=== PATIENT | male | born 1935 | race Caucasian/White ===

== ENCOUNTER 2020-08-16 08:28 | Emergency (ER) | payer OTHER, MEDICARE ==
[~2020-08-16] VITALS: Ht 180.3 cm; Wt 70.5 kg
[2020-08-16] MEDS ORDERED: TETanus/Pertussis (Acell)/Diphther VAC/PF (Tdap-Adult) 0.5ml syringe IMVAC ONE (09:05)
[2020-08-16 09:27] LABS: BASOPHILS # (AUTO) 0.1 X10'3 (0-0.2); BASOPHILS % (AUTO) 0.9 % (0-1); EOSINOPHILS # (AUTO) 0.3 X10'3 (0-0.9); EOSINOPHILS % (AUTO) 3.7 % (0-6); HEMATOCRIT 37.3 % (42.0-52.0); HEMOGLOBIN 12.3 g/dl (14.0-17.9); LYMPHOCYTES # (AUTO) 0.9 X10'3 (1.1-4.8); LYMPHOCYTES % (AUTO) 11.8 % (21-51); MEAN CORPUSCULAR HEMOGLOBIN 30.8 PG (27.0-31.0); MEAN CORPUSCULAR HGB CONC 33.1 g/dL (33.0-36.5); MEAN CORPUSCULAR VOLUME 93.1 FL (78-98); MEAN PLATELET VOLUME 8.1 FL (7.4-10.4); MONOCYTES # (AUTO) 0.6 X10'3 (0-0.9); MONOCYTES % (AUTO) 8.2 % (2-12); NEUTROPHILS # (AUTO) 5.5 X10'3 (1.8-7.7); NEUTROPHILS % (AUTO) 75.4 % (42-75); PLATELET COUNT 260 X10'3 (140-440); RED CELL DISTRIBUTION WIDTH 13.5 % (11.5-14.5); WHITE BLOOD COUNT 7.4 X10'3 (4.5-11.0)
[2020-08-16 09:45] LABS: ALANINE AMINOTRANSFERASE 14 U/L (12-78); ALBUMIN 3.1 G/DL (3.4-5.0); ALBUMIN/GLOBULIN RATIO 0.8 (1.1-1.5); ALKALINE PHOSPHATASE 110 IU/L (46-116); ANION GAP 13 (8-16); ASPARTATE AMINO TRANSFERASE 13 U/L (10-37); BILIRUBIN,TOTAL 0.4 MG/DL (0.1-1.0); BLOOD UREA NITROGEN 19 MG/DL (7-18); BUN/CREATININE RATIO 15.1 (5.4-32.0); CHLORIDE 107 MMOL/L (99-107); CREATININE 1.26 MG/DL (0.60-1.10); ETHANOL < 0.010 GM/DL (0.0-0.010); GLUCOSE 98 MG/DL (70-104); POTASSIUM 3.8 MMOL/L (3.5-5.1); SODIUM 143 MMOL/L (135-145); TOTAL CARBON DIOXIDE 22.9 MMOL/L (24-32); TOTAL PROTEIN 6.9 G/DL (6.4-8.2); eGFR 54 ML/MIN
[2020-08-16 10:35] LABS: CLARITY,URINE SLIGHTLY CLOUDY (Clear); COLOR,URINE YELLOW (Yellow); GLUCOSE, URINE NEGATIVE (Neg); KETONES,URINE NEGATIVE (Neg); LEUKOCYTE ESTERASE ,URINE NEGATIVE (Neg); NITRITES, URINE NEGATIVE (Neg); OCCULT BLOOD,URINE NEGATIVE (Neg); PH,URINE 5.5 (4.8-8.0); PROTEIN,URINE NEGATIVE (Neg); UROBILINOGEN,URINE 0.2 E.U/dL (0.2-1.0)
[2020-08-16 10:36] LABS: UA COLLECTION TYPE STRAIGHT CATH
[2020-08-16 10:42] LABS: MUCUS STRANDS MODERATE /LPF (Neg)
[2020-08-16 10:44] LABS: BACTERIA,URINE 1+ /HPF (Neg); RBC,URINE 0-2 /HPF (0-2); SQUAMOUS EPITHELIAL CELL,UR FEW /LPF (FEW); WBC,URINE 0-4 /HPF (0-4)
[2020-08-16 10:50] LABS: URINE AMPHETAMINE SCREEN NEGATIVE (Neg); URINE BARBITUATE SCREEN NEGATIVE (Neg); URINE BENZODIAZEPINES SCREEN NEGATIVE (Neg); URINE CANNABINOID SCREEN NEGATIVE (Neg); URINE COCAINE SCREEN NEGATIVE (Neg); URINE METHADONE SCREEN NEGATIVE (Neg); URINE OPIATE SCREEN NEGATIVE (Neg); URINE PHENCYCLIDINE SCREEN NEGATIVE (Neg)
[2020-08-16 13:09] VITALS: BP 148/89
== END 2020-08-16 13:11 | disposition home or self-care (01) ==
LOC: ER 08:28
DX: N28.9 Disorder of kidney and ureter, unspecified (principal); R56.9 Unspecified convulsions; I63.9 Cerebral infarction, unspecified; R47.01 Aphasia; Z86.73 Personal history of transient ischemic attack (TIA), and cerebral infarction without residual deficits
CPT/HCPCS: 36415; 70450; 80053; 80305; 80320; 81001; 82948; 85025; 90471; 90715; 93005; 99285

== ENCOUNTER 2020-09-06 08:38 | Emergency (ER) | payer OTHER, MEDICARE ==
[~2020-09-06] VITALS: Ht 182.9 cm; Wt 69.0 kg
[2020-09-06] MEDS ORDERED: LIDOcaine 1% W/epiNEPHrine 1:200,000 10ml vial IJ ONE (08:55)
[2020-09-06] MEDS ORDERED: TETanus/Pertussis (Acell)/Diphther VAC/PF (Tdap-Adult) 0.5ml syringe IMVAC ONE (08:55)
[2020-09-06 09:13] LABS: BASOPHILS # (AUTO) 0.1 X10'3 (0-0.2); BASOPHILS % (AUTO) 0.9 % (0-1); EOSINOPHILS # (AUTO) 0.3 X10'3 (0-0.9); HEMATOCRIT 35.5 % (42.0-52.0); HEMOGLOBIN 11.6 g/dl (14.0-17.9); LYMPHOCYTES # (AUTO) 1.2 X10'3 (1.1-4.8); MEAN CORPUSCULAR HEMOGLOBIN 30.1 PG (27.0-31.0); MEAN CORPUSCULAR HGB CONC 32.7 g/dL (33.0-36.5); MEAN CORPUSCULAR VOLUME 92.1 FL (78-98); MEAN PLATELET VOLUME 8.4 FL (7.4-10.4); MONOCYTES # (AUTO) 0.6 X10'3 (0-0.9); MONOCYTES % (AUTO) 8.2 % (2-12); NEUTROPHILS # (AUTO) 4.6 X10'3 (1.8-7.7); NEUTROPHILS % (AUTO) 67.9 % (42-75); PLATELET COUNT 235 X10'3 (140-440); RED BLOOD COUNT 3.85 X10'6 (4.70-6.10); RED CELL DISTRIBUTION WIDTH 13.9 % (11.5-14.5); WHITE BLOOD COUNT 6.7 X10'3 (4.5-11.0)
[2020-09-06 09:20] LABS: ALANINE AMINOTRANSFERASE 10 U/L (12-78); ALBUMIN 2.6 G/DL (3.4-5.0); ALBUMIN/GLOBULIN RATIO 0.8 (1.1-1.5); ALKALINE PHOSPHATASE 103 IU/L (46-116); ANION GAP 14 (8-16); ASPARTATE AMINO TRANSFERASE 10 U/L (10-37); BILIRUBIN,TOTAL 0.3 MG/DL (0.1-1.0); BLOOD UREA NITROGEN 16 MG/DL (7-18); CALCIUM 7.3 MG/DL (8.5-10.1); CHLORIDE 113 MMOL/L (99-107); GLUCOSE 77 MG/DL (70-104); POTASSIUM 3.5 MMOL/L (3.5-5.1); SODIUM 144 MMOL/L (135-145); TOTAL CARBON DIOXIDE 17.4 MMOL/L (24-32); TOTAL PROTEIN 5.8 G/DL (6.4-8.2); eGFR 71 ML/MIN
--- NOTE | 2020-09-06 10:12 | NUR ---
pt getting tele neuro at bedside ,went to talk to the neurologist and discussed the sbar.as per neurologist he will talk to the doctor .
[2020-09-06] MEDS ORDERED: levetiracetam inj 2,000 MG in normal saline 100ml IV soln 80 ML IV SCH (10:50)
[2020-09-06] MEDS ORDERED: NORMAL SALINE IV SCH ×2 (10:54→11:03)
[2020-09-06] MEDS ORDERED: LEVETIRACETAM IV SCH ×2 (10:54→11:03)
--- NOTE | 2020-09-06 11:10 | NUR ---
DR RANDHAWA IN ROOM AND REMOVED CERVICAL COLLAR. PER MD PLAN TO OBTAIN UA AND GIVE IV KEPPRA AND DC HOME
[2020-09-06 11:16] LABS: CLARITY,URINE CLEAR (Clear); COLOR,URINE YELLOW (Yellow); GLUCOSE, URINE NEGATIVE (Neg); KETONES,URINE NEGATIVE (Neg); LEUKOCYTE ESTERASE ,URINE NEGATIVE (Neg); NITRITES, URINE NEGATIVE (Neg); OCCULT BLOOD,URINE NEGATIVE (Neg); PH,URINE 7.5 (4.8-8.0); PROTEIN,URINE NEGATIVE (Neg)
[2020-09-06 11:19] LABS: UA COLLECTION TYPE STRAIGHT CATH
--- NOTE | 2020-09-06 11:26 | NUR ---
PATIENT IN A WEI OF URINE AND MEDIUM BROWN BM, CLEANED AND LINENE AND GOWN CHANGE
[2020-09-06] MEDS ORDERED: LEVE750T6 PO (11:41)
[2020-09-06 12:30] VITALS: BP 125/71
--- NOTE | 2020-09-06 12:41 | NUR ---
SPOKE TO VIGNESH KEE SON AT [phone] PER SON CALL NITESH AT [phone] TO [facility] FOR TRASPORTATION ,CALLLED NITESH PER HER SHE WILL CALL [facility] TO [facility] FOR TRASPORTATION.
[2020-09-06] MEDS ORDERED: LEVE100S PO (13:33)
== END 2020-09-06 13:38 | disposition home or self-care (01) ==
LOC: ER 08:39
DX: S01.81XA Laceration without foreign body of other part of head, initial encounter (principal); R56.9 Unspecified convulsions; Z20.3 Contact with and (suspected) exposure to rabies; Z86.73 Personal history of transient ischemic attack (TIA), and cerebral infarction without residual deficits; Z88.5 Allergy status to narcotic agent; Z79.899 Other long term (current) drug therapy
CPT/HCPCS: 12001; 36415; 70450; 72125; 80053; 81003; 85025; 90471; 90715; 96365; 99285; J1953; J7050; 12011

== ENCOUNTER 2021-04-20 08:11 | Emergency (ER) | payer OTHER, MEDICARE ==
[~2021-04-20] VITALS: Ht 180.3 cm; Wt 75.0 kg
[~2021-04-20 08:11] MED LIST: LEVE100S PO
[2021-04-20] MEDS ORDERED: TETanus/Pertussis (Acell)/Diphther VAC/PF (Tdap-Adult) 0.5ml syringe IMVAC ONE (10:05)
[2021-04-20 11:48] VITALS: BP 160/95
== END 2021-04-20 13:51 | disposition home or self-care (01) ==
LOC: ER 08:12
DX: S01.81XA Laceration without foreign body of other part of head, initial encounter (principal); S51.012A Laceration without foreign body of left elbow, initial encounter; S09.8XXA Other specified injuries of head, initial encounter; Z98.890 Other specified postprocedural states; Z86.73 Personal history of transient ischemic attack (TIA), and cerebral infarction without residual deficits; Z88.6 Allergy status to analgesic agent; Z79.899 Other long term (current) drug therapy; W06.XXXA Fall from bed, initial encounter; Y93.89 Activity, other specified; Y92.89 Other specified places as the place of occurrence of the external cause; Y99.8 Other external cause status
CPT/HCPCS: 12002; 70450; 72125; 99285

== ENCOUNTER 2021-06-03 17:41 | Emergency (ER) | payer OTHER, MEDICARE ==
[~2021-06-03] VITALS: Ht 180.3 cm; Wt 72.0 kg
[2021-06-03 19:09] LABS: BASOPHILS % (AUTO) 0.4 % (0-1); EOSINOPHILS # (AUTO) 0.1 X10'3 (0-0.9); EOSINOPHILS % (AUTO) 1.3 % (0-6); HEMOGLOBIN 11.4 g/dl (14.0-17.9); LYMPHOCYTES # (AUTO) 0.9 X10'3 (1.1-4.8); LYMPHOCYTES % (AUTO) 10.5 % (21-51); MEAN CORPUSCULAR HEMOGLOBIN 32.9 PG (27.0-31.0); MEAN CORPUSCULAR HGB CONC 34.6 g/dL (33.0-36.5); MEAN CORPUSCULAR VOLUME 95.1 FL (78-98); MEAN PLATELET VOLUME 8.3 FL (7.4-10.4); MONOCYTES # (AUTO) 0.3 X10'3 (0-0.9); MONOCYTES % (AUTO) 4.2 % (2-12); NEUTROPHILS # (AUTO) 6.9 X10'3 (1.8-7.7); NEUTROPHILS % (AUTO) 83.6 % (42-75); PLATELET COUNT 161 X10'3 (140-440); RED BLOOD COUNT 3.47 X10'6 (4.70-6.10); RED CELL DISTRIBUTION WIDTH 15.8 % (11.5-14.5); WHITE BLOOD COUNT 8.3 X10'3 (4.5-11.0)
[2021-06-03 19:22] LABS: ALANINE AMINOTRANSFERASE 59 U/L (12-78); ALBUMIN 2.7 G/DL (3.4-5.0); ALBUMIN/GLOBULIN RATIO 0.8 (1.1-1.5); ALKALINE PHOSPHATASE 100 IU/L (46-116); ANION GAP 9 (8-16); ASPARTATE AMINO TRANSFERASE 33 U/L (10-37); BILIRUBIN,TOTAL 0.5 MG/DL (0.1-1.0); BLOOD UREA NITROGEN 32 MG/DL (7-18); BUN/CREATININE RATIO 30.2 (5.4-32.0); CALCIUM 8.2 MG/DL (8.5-10.1); CHLORIDE 121 MMOL/L (99-107); CREATININE 1.06 MG/DL (0.60-1.10); GLUCOSE 91 MG/DL (70-104); LIPASE 169 U/L (73-393); POTASSIUM 4.4 MMOL/L (3.5-5.1); SODIUM 153 MMOL/L (135-145); TOTAL CARBON DIOXIDE 22.6 MMOL/L (24-32); TOTAL PROTEIN 5.9 G/DL (6.4-8.2); eGFR 66 ML/MIN
[2021-06-03 19:44] LABS: TROPONIN I < 0.04 NG/ML (0.0-0.05)
[2021-06-03] MEDS ORDERED: sodium chloride 0.45% 1,000 ML IV ONE (20:20)
--- NOTE | 2021-06-03 20:51 | NUR ---
PT IS RESTING QUIETLY ON FAMILY BRYANT AT BEDSIDE, 45% NORMAL SALINE INFUSING
[2021-06-03 22:54] LABS: CLARITY,URINE SLIGHTLY CLOUDY (Clear); COLOR,URINE YELLOW (Yellow); GLUCOSE, URINE NEGATIVE (Neg); KETONES,URINE TRACE mg/dl (Neg); LEUKOCYTE ESTERASE ,URINE NEGATIVE (Neg); NITRITES, URINE NEGATIVE (Neg); OCCULT BLOOD,URINE NEGATIVE (Neg); PROTEIN,URINE NEGATIVE (Neg); UA COLLECTION TYPE CLN CATCH MIDSTREAM; UROBILINOGEN,URINE 0.2 E.U/dL (0.2-1.0)
[2021-06-03 22:59] LABS: SQUAMOUS EPITHELIAL CELL,UR FEW /LPF (FEW)
[2021-06-03 23:00] LABS: BACTERIA,URINE FEW /HPF (Neg); RBC,URINE 0-2 /HPF (0-2); WBC,URINE 0-4 /HPF (0-4)
[2021-06-04 02:56] VITALS: BP 139/76
[2021-06-05] MEDS ORDERED: DEXT15DR7 OP (03:36)
[2021-06-05] MEDS ORDERED: LORA-268 (03:36)
[2021-06-05] MEDS ORDERED: FLO0.4C PO (03:36)
[2021-06-05] MEDS ORDERED: LOPE1LIQ54 (03:36)
[2021-06-05] MEDS ORDERED: TRAM50TA2 PO (03:36)
[2021-06-05] MEDS ORDERED: SERT25TA PO (03:36)
[2021-06-05] MEDS ORDERED: POTA-82 PO (03:36)
[2021-06-05] MEDS ORDERED: MAGN400O6 PO (03:36)
[2021-06-05] MEDS ORDERED: BISA10SU60 RC (03:36)
== END 2021-06-04 03:42 | disposition home or self-care (01) ==
LOC: ER 17:41
DX: S00.81XA Abrasion of other part of head, initial encounter (principal); E86.0 Dehydration; R00.1 Bradycardia, unspecified; R62.7 Adult failure to thrive; R32 Unspecified urinary incontinence; F03.91 Unspecified dementia, unspecified severity, with behavioral disturbance; Z88.5 Allergy status to narcotic agent; Z86.16 Personal history of COVID-19; Z79.899 Other long term (current) drug therapy; W19.XXXA Unspecified fall, initial encounter; Y93.89 Activity, other specified; Y92.89 Other specified places as the place of occurrence of the external cause; Y99.8 Other external cause status
CPT/HCPCS: 36415; 70450; 71045; 72125; 80053; 81001; 83605; 83690; 84145; 84484; 85025; 87040; 96360; 96361; 99285

== ENCOUNTER 2021-06-04 22:08 | Inpatient (IN) | payer OTHER, MEDICARE ==
[~2021-06-04] VITALS: Ht 182.9 cm; Wt 75.0 kg
--- NOTE | 2021-06-04 22:25 | NUR ---
PT ROOMED IN BED 1. ASSUMED CARE OF PT.
--- NOTE | 2021-06-04 22:48 | NUR ---
DR HENRIQUEZ IN ROOM.
[2021-06-04] MEDS ORDERED: atropine 1 MG/1 ML vial IV ONE (22:55)
[2021-06-04] MEDS ORDERED: atropine 0.1mg/ml 10ml syringe IV ONE (23:00)
[2021-06-04 23:12] LABS: BASOPHILS % (AUTO) 0.6 % (0-1); EOSINOPHILS # (AUTO) 0.1 X10'3 (0-0.9); EOSINOPHILS % (AUTO) 3.4 % (0-6); HEMATOCRIT 31.4 % (42.0-52.0); HEMOGLOBIN 10.9 g/dl (14.0-17.9); LYMPHOCYTES # (AUTO) 0.8 X10'3 (1.1-4.8); LYMPHOCYTES % (AUTO) 20.2 % (21-51); MEAN CORPUSCULAR HEMOGLOBIN 33.1 PG (27.0-31.0); MEAN CORPUSCULAR HGB CONC 34.8 g/dL (33.0-36.5); MEAN CORPUSCULAR VOLUME 95.4 FL (78-98); MEAN PLATELET VOLUME 8.4 FL (7.4-10.4); MONOCYTES # (AUTO) 0.3 X10'3 (0-0.9); MONOCYTES % (AUTO) 7.9 % (2-12); NEUTROPHILS # (AUTO) 2.7 X10'3 (1.8-7.7); NEUTROPHILS % (AUTO) 67.9 % (42-75); PLATELET COUNT 144 X10'3 (140-440); RED BLOOD COUNT 3.29 X10'6 (4.70-6.10); WHITE BLOOD COUNT 3.9 X10'3 (4.5-11.0)
--- NOTE | 2021-06-04 23:48 | NUR ---
PT AT CT
[2021-06-05] LABS: ALANINE AMINOTRANSFERASE 53 U/L (12-78); ALBUMIN 2.6 G/DL (3.4-5.0); ALBUMIN/GLOBULIN RATIO 0.8 (1.1-1.5); ALKALINE PHOSPHATASE 96 IU/L (46-116); ANION GAP 9 (8-16); ASPARTATE AMINO TRANSFERASE 39 U/L (10-37); BILIRUBIN,DIRECT 0.1 MG/DL (0-0.3); BILIRUBIN,TOTAL 0.3 MG/DL (0.1-1.0); BLOOD UREA NITROGEN 32 MG/DL (7-18); BUN/CREATININE RATIO 28.8 (5.4-32.0); CALCIUM 8.2 MG/DL (8.5-10.1); CHLORIDE 119 MMOL/L (99-107); CREATININE 1.11 MG/DL (0.60-1.10); GLUCOSE 98 MG/DL (70-104); LIPASE 358 U/L (73-393); POTASSIUM 4.3 MMOL/L (3.5-5.1); SODIUM 150 MMOL/L (135-145); TOTAL CARBON DIOXIDE 22.5 MMOL/L (24-32); TOTAL PROTEIN 5.9 G/DL (6.4-8.2); eGFR 63 ML/MIN
[2021-06-05] MEDS ORDERED: normal saline 1000ml 1,000 ML IV ONE (01:55)
[2021-06-05] MEDS ORDERED: magnesium hydroxide 30ml (MOM) UD suspension PO PRN (02:00)
[2021-06-05] MEDS ORDERED: ondansetron/PF 4mg/2ml inj IV PRN (02:00)
[2021-06-05] MEDS ORDERED: acetaminophen 325mg tablet PO PRN (02:00)
[2021-06-05] MEDS: sodium chloride 0.45% 1,000 ML IV SCH ×2 (02:00→12:23)
[2021-06-05] MEDS ORDERED: mag hydrox/Alum hydrox/simeth 30ml oral suspension PO PRN (02:00)
[2021-06-05] MEDS ORDERED: LOPE1LIQ54 (03:36)
[2021-06-05] MEDS ORDERED: BISA10SU60 RC (03:36)
[2021-06-05] MEDS ORDERED: MAGN400O6 PO (03:36)
[2021-06-05] MEDS ORDERED: LORA-268 (03:36)
[2021-06-05] MEDS ORDERED: DEXT15DR7 OP (03:36)
[2021-06-05] MEDS ORDERED: SERT25TA PO (03:36)
[2021-06-05] MEDS ORDERED: TRAM50TA2 PO (03:36)
[2021-06-05] MEDS ORDERED: POTA-82 PO (03:36)
[2021-06-05] MEDS ORDERED: FLO0.4C PO (03:36)
[2021-06-05] MEDS ORDERED: sertraline 50mg tablet PO SCH (08:00)
[2021-06-05] MEDS: docusate sod 100mg capsule PO SCH ×2 (08:00→20:42)
[2021-06-05 09:05] LABS: ALANINE AMINOTRANSFERASE 47 U/L (12-78); ALBUMIN 2.6 G/DL (3.4-5.0); ALBUMIN/GLOBULIN RATIO 0.8 (1.1-1.5); ALKALINE PHOSPHATASE 95 IU/L (46-116); ANION GAP 6 (8-16); ASPARTATE AMINO TRANSFERASE 28 U/L (10-37); BILIRUBIN,TOTAL 0.4 MG/DL (0.1-1.0); BLOOD UREA NITROGEN 29 MG/DL (7-18); BUN/CREATININE RATIO 26.9 (5.4-32.0); CALCIUM 8.8 MG/DL (8.5-10.1); CHLORIDE 121 MMOL/L (99-107); CREATININE 1.08 MG/DL (0.60-1.10); GLUCOSE 52 MG/DL (70-104); POTASSIUM 5.4 MMOL/L (3.5-5.1); SODIUM 151 MMOL/L (135-145); TOTAL CARBON DIOXIDE 23.6 MMOL/L (24-32); TOTAL PROTEIN 5.7 G/DL (6.4-8.2); eGFR 65 ML/MIN
[2021-06-05] MEDS: magnesium hydroxide 30ml (MOM) UD suspension PO SCH ×2 (10:00→20:41)
[2021-06-05] MEDS: levetiracetam 250mg tablet PO SCH ×2 (10:24→20:40)
[2021-06-05] MEDS: bisacodyl 10mg suppository rectal RC SCH (10:24)
[2021-06-05] MEDS: tamsulosin 0.4mg capsule PO SCH (10:24)
--- NOTE | 2021-06-05 15:11 | NUR ---
Patient is resident of [place], per MD, patient can return on hospice care, [facility] have no availability, [facility] can open on Thursday if [facility] is able to accept back, notified
--- NOTE | 2021-06-05 16:14 | NUR ---
updated shai Epps on plan of care
--- NOTE | 2021-06-05 18:50 | NUR ---
REPORT GIVEN TO MARTINA MEJIA, PT TO GO TO ROOM [id number]
[2021-06-05 20:00] VITALS: BP 103/47
--- NOTE | 2021-06-05 20:00 | NUR ---
patient received to floor in no apparent distress. Patient does not appear in pain. Patient bradycardic and hypothermic 92.1F. redness to buttocks noted. BP stable. Physical assessment done and documented. Tele monitor attached. Patient covered with Marco A hugger blanket to increase temp. patient appears comfortable. All safety in place. will continue monitor.
[2021-06-05 20:15] VITALS: BP 118/59
[2021-06-05 20:30] VITALS: BP 122/60
[2021-06-05] MEDS: dextrose 5%-water 1,000 ML IV SCH (20:41)
[2021-06-05 21:00] VITALS: BP 120/58
[2021-06-05 21:30] VITALS: BP 102/51
[2021-06-05 22:00] VITALS: BP 91/42
--- NOTE | 2021-06-06 00:20 | NUR ---
patient has a very big hard BM
[2021-06-06] MEDS: dextrose 5%-water 1,000 ML IV SCH ×3 (01:44→20:11)
[2021-06-06 02:00] VITALS: BP 110/56
[2021-06-06 06:12] LABS: BASOPHILS % (AUTO) 0.6 % (0-1); EOSINOPHILS # (AUTO) 0.1 X10'3 (0-0.9); EOSINOPHILS % (AUTO) 1.4 % (0-6); HEMATOCRIT 29.8 % (42.0-52.0); HEMOGLOBIN 10.5 g/dl (14.0-17.9); LYMPHOCYTES # (AUTO) 0.8 X10'3 (1.1-4.8); LYMPHOCYTES % (AUTO) 17.9 % (21-51); MEAN CORPUSCULAR HEMOGLOBIN 32.9 PG (27.0-31.0); MEAN CORPUSCULAR HGB CONC 35.1 g/dL (33.0-36.5); MEAN CORPUSCULAR VOLUME 93.7 FL (78-98); MEAN PLATELET VOLUME 9.2 FL (7.4-10.4); MONOCYTES # (AUTO) 0.3 X10'3 (0-0.9); MONOCYTES % (AUTO) 6.2 % (2-12); NEUTROPHILS # (AUTO) 3.2 X10'3 (1.8-7.7); NEUTROPHILS % (AUTO) 73.9 % (42-75); PLATELET COUNT 157 X10'3 (140-440); RED BLOOD COUNT 3.18 X10'6 (4.70-6.10); RED CELL DISTRIBUTION WIDTH 15.6 % (11.5-14.5); WHITE BLOOD COUNT 4.3 X10'3 (4.5-11.0)
[2021-06-06 06:21] LABS: ALANINE AMINOTRANSFERASE 154 U/L (12-78); ALBUMIN 2.3 G/DL (3.4-5.0); ALBUMIN/GLOBULIN RATIO 0.8 (1.1-1.5); ALKALINE PHOSPHATASE 101 IU/L (46-116); ANION GAP 8 (8-16); ASPARTATE AMINO TRANSFERASE 124 U/L (10-37); BILIRUBIN,TOTAL 0.4 MG/DL (0.1-1.0); BLOOD UREA NITROGEN 25 MG/DL (7-18); BUN/CREATININE RATIO 21.9 (5.4-32.0); CALCIUM 8.1 MG/DL (8.5-10.1); CHLORIDE 116 MMOL/L (99-107); CREATININE 1.14 MG/DL (0.60-1.10); GLUCOSE 59 MG/DL (70-104); POTASSIUM 3.9 MMOL/L (3.5-5.1); SODIUM 145 MMOL/L (135-145); TOTAL PROTEIN 5.2 G/DL (6.4-8.2); eGFR 61 ML/MIN
--- NOTE | 2021-06-06 06:23 | NUR ---
Patient in room PCU 3023. I have received report from MARTINA Perez and had the opportunity to ask questions and assume patient care.
[2021-06-06 07:00] VITALS: BP 105/50
[2021-06-06] MEDS: docusate sod 100mg capsule PO SCH ×3 (08:00→20:00)
[2021-06-06] MEDS: sertraline 50mg tablet PO SCH ×2 (08:00→08:55)
[2021-06-06] MEDS: tamsulosin 0.4mg capsule PO SCH ×2 (08:00→08:55)
[2021-06-06] MEDS: levetiracetam 250mg tablet PO SCH ×3 (08:00→20:00)
[2021-06-06] MEDS: magnesium hydroxide 30ml (MOM) UD suspension PO SCH ×3 (08:00→20:00)
[2021-06-06] MEDS: bisacodyl 10mg suppository rectal RC SCH (08:55)
--- NOTE | 2021-06-06 09:26 | NUR ---
Initial: Pt admit for dehydration and FTT. Per EMR pt confused and with h/o dementia. Currently on a regular diet pending documentation of PO intake, though pt with decreased PO intake MEDIA DIRECTOR per MD notes. Noted pt with a low Torsten of 10, no edema or wounds per physical assessment. No nutrition intervention to be implemented as pt DNR with comfort care. [facility] 06/05. Will continue to follow per LOS. Recommendations: 1) Bowel care per comfort care measures Addendum: 06/06/21 at [address] Amended: Links added.
[2021-06-06 11:00] VITALS: BP 105/54
[2021-06-06 15:00] VITALS: BP 97/43
[2021-06-06] MEDS ORDERED: SERT-433 PO (15:53)
--- NOTE | 2021-06-06 18:25 | NUR ---
Problems reprioritized. Patient report given, questions answered & plan of care reviewed with MARTINA Sandoval. Pt sleeping comfortably, no signs of distress noted at change of shift.
[2021-06-06 19:00] VITALS: BP 92/44
--- NOTE | 2021-06-07 06:02 | NUR ---
Problems reprioritized. Patient report given, questions answered & plan of care reviewed with Nan MACK. Addendum: 06/07/21 at 0602 by Lori Frey RN Amended: Links added.
--- NOTE | 2021-06-07 06:12 | NUR ---
Patient in room PCU 3023. I have received report from MARTINA Sandoval and had the opportunity to ask questions and assume patient care.
[2021-06-07 07:00] VITALS: BP 122/57
[2021-06-07 07:35] LABS: BASOPHILS % (AUTO) 0.4 % (0-1); EOSINOPHILS % (AUTO) 0.8 % (0-6); HEMATOCRIT 32.1 % (42.0-52.0); HEMOGLOBIN 11.1 g/dl (14.0-17.9); LYMPHOCYTES # (AUTO) 1.4 X10'3 (1.1-4.8); LYMPHOCYTES % (AUTO) 27.6 % (21-51); MEAN CORPUSCULAR HGB CONC 34.7 g/dL (33.0-36.5); MEAN CORPUSCULAR VOLUME 95.1 FL (78-98); MEAN PLATELET VOLUME 8.7 FL (7.4-10.4); MONOCYTES # (AUTO) 0.4 X10'3 (0-0.9); MONOCYTES % (AUTO) 8.9 % (2-12); NEUTROPHILS # (AUTO) 3.1 X10'3 (1.8-7.7); NEUTROPHILS % (AUTO) 62.3 % (42-75); PLATELET COUNT 169 X10'3 (140-440); RED BLOOD COUNT 3.37 X10'6 (4.70-6.10); RED CELL DISTRIBUTION WIDTH 15.8 % (11.5-14.5); WHITE BLOOD COUNT 5.1 X10'3 (4.5-11.0)
[2021-06-07] MEDS: dextrose 5%-water 1,000 ML IV SCH (07:40)
[2021-06-07 07:57] LABS: ALANINE AMINOTRANSFERASE 100 U/L (12-78); ALBUMIN 2.4 G/DL (3.4-5.0); ALBUMIN/GLOBULIN RATIO 0.8 (1.1-1.5); ALKALINE PHOSPHATASE 106 IU/L (46-116); ANION GAP 8 (8-16); ASPARTATE AMINO TRANSFERASE 62 U/L (10-37); BILIRUBIN,TOTAL 0.6 MG/DL (0.1-1.0); BLOOD UREA NITROGEN 22 MG/DL (7-18); BUN/CREATININE RATIO 17.2 (5.4-32.0); CALCIUM 8.1 MG/DL (8.5-10.1); CHLORIDE 116 MMOL/L (99-107); CREATININE 1.28 MG/DL (0.60-1.10); GLUCOSE 67 MG/DL (70-104); SODIUM 146 MMOL/L (135-145); TOTAL CARBON DIOXIDE 22.4 MMOL/L (24-32); TOTAL PROTEIN 5.4 G/DL (6.4-8.2); eGFR 53 ML/MIN
[2021-06-07] MEDS: tamsulosin 0.4mg capsule PO SCH (08:00)
[2021-06-07] MEDS: docusate sod 100mg capsule PO SCH (08:00)
[2021-06-07] MEDS: sertraline 50mg tablet PO SCH (08:00)
[2021-06-07] MEDS: magnesium hydroxide 30ml (MOM) UD suspension PO SCH (08:00)
[2021-06-07] MEDS: levetiracetam 250mg tablet PO SCH (08:00)
--- NOTE | 2021-06-07 09:43 | NUR ---
Patient stable for discharge per md orders. Called [facility], gave report to Cheli, signed with MARTINA Swartz confirmed [facility] is expecting pt back. All pt belongings collected and sent with [facility] personnel. No PIV at time of discharge. DC'd tele , regional telecommunications specialist notified. Pt picked up by [facility] and transported to [facility].
== END 2021-06-07 09:43 | disposition hospice, home (50) | DRG 641 ==
LOC: ER 22:09 → ED HOLD 06-05 02:01 → EDBEDREQ 06-05 18:17 → PCU 3S 06-05 19:20
PROVIDERS: ADMIT Internal Medicine; ATTEND Family Medicine
DX: E86.0 Dehydration (principal); R00.1 Bradycardia, unspecified; E87.0 Hyperosmolality and hypernatremia; T43.225A Adverse effect of selective serotonin reuptake inhibitors, initial encounter; G30.9 Alzheimer's disease, unspecified; F02.80 Dementia in other diseases classified elsewhere, unspecified severity, without behavioral disturbance, psychotic disturbance, mood disturbance, and anxiety; I95.9 Hypotension, unspecified; R62.7 Adult failure to thrive; D64.9 Anemia, unspecified; Z66 Do not resuscitate; W18.39XA Other fall on same level, initial encounter; S00.81XA Abrasion of other part of head, initial encounter; Y93.89 Activity, other specified; Y92.89 Other specified places as the place of occurrence of the external cause; Y99.8 Other external cause status; Z51.5 Encounter for palliative care; Z86.73 Personal history of transient ischemic attack (TIA), and cerebral infarction without residual deficits; Z88.5 Allergy status to narcotic agent; Z79.899 Other long term (current) drug therapy; Z99.3 Dependence on wheelchair; Z68.22 Body mass index [BMI] 22.0-22.9, adult
CPT/HCPCS: 36415; 70450; 71045; 80048; 80053; 80076; 80177; 83690; 84484; 85025; 93005; 99285; G0378; J0461; J7030; J7070